=== PATIENT | male | born 1975 | race Caucasian/White ===

== ENCOUNTER 2017-01-11 21:56 | Emergency (ER) | payer OTHER ==
[~2017-01-11] VITALS: Ht 162.6 cm; Wt 65.9 kg
[~2017-01-11 21:56] MED LIST: BUPR1FIL3 SL
[2017-01-11 22:06] VITALS: BP 149/100; PULSE 83; RESP 16; O2SAT 100
--- NOTE | 2017-01-11 22:42 | ED.REPORT ---
HPI-General Illness Date of Service Jan 11, 2017 ED Provider: Shivam Nguyen MD Patient is a 41 year old male with a history of IV heroin abuse, endocarditis, and hepatitis C, who presents to the ED requesting Suboxone, after last using IV heroin earlier today. Patient has been seen twice in the emergency room for bridging scripts and then was a outpatient with me at [facility] for a period of time. He did well as an outpatient while on the Suboxone but he frequently leaves town due to work. He admits that he relapses when he leaves this area and cannot keep his appointment for refills. He has an additional out- of-town job coming up, but after that time will be in this area permanently. The patient states that his drug abuse is affecting is work and that he is worried about losing his job. Patient also admits to using methamphetamine occasionally. Patient denies withdrawal symptoms at this time. Nursing Notes Stated Complaint: DETOX Chief Complaint: Substance Abuse Nursing Notes Reviewed: Yes Allergies: Coded Allergies: No Known Allergies (Unverified , 01/11/17) Scheduled Buprenorphine HCl/Naloxone HCl (Suboxone 8 mg-2 mg Sl Film) 1 Each Film 2 EACH SL DAILY Buprenorphine HCl/Naloxone HCl (Suboxone 8 mg-2 mg Sl Film) 1 Each Film 1 EACH SL BID Buprenorphine HCl/Naloxone HCl (Suboxone 8 mg-2 mg Sl Film) 1 Each Film 1 EACH SL DAILY General Time Seen by MD: 22:38 Chief Complaint Other (requesting Suboxone) Hx Obtained From: Patient Arrived By: Walk-in Sudden in Onset?: No Onset Occurred: 1 - 4 hours ago Symptom Duration: Since onset Recent Healthcare: No recent doctor visit, No recent hospitalization Similar Sx Previous: Yes Past Medical History Past Medical History Hepatitis C Bepatitis B endocarditis sciatica diabetes mellitus Reports: IV Drug use Past Surgical History denies Smoking History Unknown if Ever Smoker Social History From [place] Drug Use: IV drugs Other Social History: Good social support, Local resident Ambulatory Status Independent Review of Systems denies withdrawal symptoms Full Review of Systems Constitutional: Denies: Chills, Fever Respiratory: Denies: Non-productive cough, Shortness of breath GI: Denies: Diarrhea, Vomiting Complete sys rev & neg: except as marked. Physical Exam Vital Signs Vital Signs Date Time Temp Pulse Resp B/P Pulse Ox O2 Delivery O2 Flow Rate FiO2 01/11/17 22:06 36.4 83 16 149/100 100 Room Air Initial VS: Reviewed, Vital signs abnormal Extremities: Vascular intact, Neuro intact Skin: Warm, Dry, No cyanosis Neurologic: Alert, Oriented, Nonfocal Psychiatric: Mood/affect normal, Behavior normal, Normal thought content General/Constitutional: Awake, Alert, No acute distress no signs of withdrawal Head / Eyes: Normocephalic, PERRL ENT: Airway patent, Mucous membranes moist Neck: Supple, Full range of motion Respiratory / Chest: No respiratory distress, No stridor Cardiovascular: Heart rate NL, Regular rhythm Lower Extremity / Pelvis / MS: No deformity Re-Eval/Medical Decision Med Decision/Clinical Course 41-year-old male well-known to me from both here in the emergency room and outpatient Suboxone maintenance clinic. He is having trouble establishing outpatient Suboxone maintenance because his work currently requires out-of- state travel and he is unable to do the appointments that are required. He reports that his last [id number] job is from January 13 to February 11. He has one trip home in the middle of that. I am uncomfortable giving him a prescription to cover that entire one month timeframe. I agree however to give him I one strip a day for 21 days to be followed by reevaluation either here or at [facility] if he can get in, and then an additional prescription for the remaining 10+ days to coincide with his travel schedule. He seems well motivated and has proven in the past that he does well while he is on Suboxone and relapses when he cannot get it. Once this month is over and he is no longer traveling we will resume his normal schedule her weekly visits at [facility]. Source of Hx: Old records Time of Eval: 23:47 Patient Status: Condition improved Re-Evaluation/Progress Note: Patient will be given a prescription for Suboxone. Patient understands and agrees with the plan to be discharged home. Discharge instructions and follow-up discussed. All questions were addressed. Return to the ED warnings given. Counseled Regarding: Diagnosis, Need for follow-up, When/why to return to ED Discharge & Departure Primary Impression: Opioid dependence with withdrawal Disposition: Home Discharge Condition All VS Reviewed: Yes Condition: Stable Patient Instructions: Buprenorphine/Naloxone (By mouth) Additional Instructions: It is obvious that you need to be on outpatient Suboxone maintenance. However, this is a tightly regulated medication and you have been unable to meet the follow-up requirements. I understand the limitations that you are traveling work puts on you. I get I will give you sufficient prescription to use one strip a day, and I will need to see you back on the for a refill. At the end of this travel you will need to be enrolled at [facility] in order to get continued medication. Referrals: [facility] (PCP) Benita Attestation Portions of this note were transcribed by Magali De La Cruz. I, Dr. Nguyen personally performed the history, physical exam and medical decision-making; I reviewed and confirmed the accuracy of the information in the transcribed note. Signed by: Benita Jones, 01/12/2017 0016 copies to: [facility] Howard L MD Jan 11, 2017 22:42 Magali De La Cruz Jan 11, 2017 22:58
[2017-01-11] MEDS ORDERED: BUPR1FIL3 SL (23:55)
[2017-01-12] MEDS ORDERED: Buprenorphine 2 mg SL Tablet SL ONE (00:35)
== END 2017-01-12 00:40 | disposition home or self-care (01) ==
LOC: SED 21:56
DX: F11.23 Opioid dependence with withdrawal (principal); E11.9 Type 2 diabetes mellitus without complications; F15.10 Other stimulant abuse, uncomplicated; Z86.79 Personal history of other diseases of the circulatory system; Z86.19 Personal history of other infectious and parasitic diseases